=== PATIENT | male | born 1955 | race Caucasian/White ===

== ENCOUNTER 2022-02-13 11:43 | Emergency (ER) | payer MEDICARE, BC | END 2022-02-13 15:00 | disposition home or self-care (01) | LOC: JP.ED 11:43 | DX: S39.012A Strain of muscle, fascia and tendon of lower back, initial encounter (principal); R51.9 Headache, unspecified; W19.XXXA Unspecified fall, initial encounter | CPT/HCPCS: 99281; 99283 ==